=== PATIENT | female | born 1985 | race Caucasian/White ===

== ENCOUNTER 2017-06-25 06:27 | Day surgery (SDC) | payer BC ==
[2017-06-24 10:21] LABS: CHLORIDE,CL 106 mmol/L (98-110); SODIUM,NA 139 mmol/L (136-146)
[~2017-06-25 06:27] MED LIST: Sodium Chloride 0.9% 10 ML Syringe FLUSH PRN; Sodium Chloride 0.9% 2.5 ML Syringe FLUSH PRN; ceFAZolin 2 GM in Premix Bag 1 BAG IV ONE
[2017-06-25] MEDS ORDERED: Bupivacaine 0.25% 10 ML SDV ONE ×2 (07:18→08:23)
[2017-06-25] MEDS ORDERED: Fluorescein 5 ML Vial ONE (07:18)
[2017-06-25] MEDS ORDERED: Methylene Blue 50 MG/10 ML Ampule ONE (07:18)
[2017-06-25] MEDS ORDERED: Lidocaine 2% 5 ML SDV ONE (07:23)
[2017-06-25] MEDS ORDERED: Propofol 200 MG/20 ML SDV ONE ×2 (07:25→08:55)
[2017-06-25] MEDS ORDERED: Midazolam 1 MG/ML 2 ML SDV ONE (07:25)
[2017-06-25] MEDS ORDERED: fentaNYL 100 MCG/2 ML SDV ONE ×2 (07:25→09:00)
--- NOTE | 2017-06-25 07:28 | PCM.PREANE ---
Preanesthetic Assessment - Anesthesia/Transfusion/Family Hx Anesthesia History: Prior Anesthesia Without Reaction Family History of Anesthesia Reaction: No Transfusion History: No Prior Transfusion(s) - Review of Systems General: No Symptoms Pulmonary: No Symptoms Cardiovascular: No Symptoms Gastrointestinal: No Symptoms Neurological: No Symptoms Other: Reports: None - Physical Assessment NPO Status Date: 06/24/17 O2 Sat by Pulse Oximetry: 98 Respiratory Rate: 16 Vital Signs: Last Vital Signs Temp 36.5 C 06/25/17 06:36 Pulse 64 06/25/17 06:36 Resp 16 06/25/17 06:36 BP 120/84 06/25/17 06:36 Pulse Ox 98 06/25/17 06:36 Height: 1.57 m Weight: 83.915 kg ASA Class: 2 Mental Status: Alert & Oriented x3 Airway Class: Mallampati = 1 Dentition: Reports: Normal Dentition ROM/Head Extension: Full Lungs: Clear to Auscultation, Normal Respiratory Effort Cardiovascular: Regular Rate, Regular Rhythm - Lab Values: Laboratory Last Values WBC 4.76 K/uL (4.0-11.0) 06/24/17 09:43 RBC 4.44 M/uL (4.30-5.90) 06/24/17 09:43 Hgb 13.3 g/dL (12.0-16.0) 06/24/17 09:43 Hct 39.9 % (36.0-46.0) 06/24/17 09:43 MCV 89.9 fL (80.0-98.0) 06/24/17 09:43 MCH 30.0 pg (27.0-32.0) 06/24/17 09:43 MCHC 33.3 g/dL (31.0-37.0) 06/24/17 09:43 RDW Std Deviation 41.5 fl (28.0-62.0) 06/24/17 09:43 RDW Coeff of Lico 13 % (11.0-15.0) 06/24/17 09:43 Plt Count 224 K/uL (150-400) 06/24/17 09:43 MPV 10.10 fL (7.40-12.00) 06/24/17 09:43 Nucleated RBC % 0.0 /100WBC 06/24/17 09:43 Nucleated RBCs # 0 K/uL 06/24/17 09:43 Sodium 139 mmol/L (136-146) 06/24/17 09:43 Potassium 4.0 mmol/L (3.5-5.1) 06/24/17 09:43 Chloride 106 mmol/L (98-110) 06/24/17 09:43 Carbon Dioxide 25 mmol/L (21-31) 06/24/17 09:43 BUN 11 mg/dL (6.0-23.0) 06/24/17 09:43 Creatinine 0.7 mg/dL (0.6-1.5) 06/24/17 09:43 Est Cr Clr Drug Dosing 90.41 mL/min 06/24/17 09:43 Estimated GFR (MDRD) > 60.0 ml/min 06/24/17 09:43 Glucose 96 mg/dL (60-110) 06/24/17 09:43 Calcium 8.7 mg/dL (8.8-10.8) L 06/24/17 09:43 HCG, Quant < 1.2 mIU/mL 06/24/17 09:43 Blood Type A NEGATIVE 06/24/17 09:43 Antibody Screen NEGATIVE 06/24/17 09:43 - Allergies Allergies/Adverse Reactions: Allergies Allergy/AdvReac Type Severity Reaction Status Date / Time No Known Allergies Allergy Verified 03/03/15 14:09 - Anesthesia Plan Pre-Op Medication Ordered: None - Acknowledgements Anesthesia Type Planned: General Anesthesia Pt an Appropriate Candidate for the Planned Anesthesia: Yes Alternatives and Risks of Anesthesia Discussed w Pt/Guardian: Yes Pt/Guardian Understands and Agrees with Anesthesia Plan: Yes PreAnesthesia Questionnaire HEENT History: Reports: Other (See Below) Other HEENT History: wears glasses Gastrointestinal History: Reports: Other (See Below) Other Gastrointestinal History: occasional heartburn Genitourinary History: Reports: None WOOL MIXER History: Reports: Endometriosis, Psychiatric History: Reports: Anxiety Endocrine/Metabolic History: Reports: Obesity/BMI 30+ - Past Surgical History Head Surgeries/Procedures: Reports: None GI Surgical History: Reports: Appendectomy Female Surgical History: Reports: D&C, Other (See Below) Other Female Surgeries/Procedures: hysteroscopy with polypectomy and D&C, laparoscopy with peritoneal biospies and exc of left paratubal cyst - SUBSTANCE USE Smoking Status *Q: Former Smoker Tobacco Use Within Last Twelve Months: No Days Per Week of Alcohol Use: 0 Recreational Drug Use History: No - HOME MEDS Home Medications: Home Meds Estrogens, Conjugated [Premarin] 1 tab PO DAILY 06/24/17 [History] - CURRENT (IN HOUSE) MEDS Current Meds: Current Medications Sodium Chloride (Saline Flush) 10 ml FLUSH ASDIRECTED PRN PRN Reason: Keep Vein Open Sodium Chloride (Saline Flush) 2.5 ml FLUSH ASDIRECTED PRN PRN Reason: Keep Vein Open Discontinued Medications Bupivacaine HCl (Sensorcaine-Mpf 0.25%) Confirm Administered Dose 20 ml .ROUTE .STK-MED ONE Stop: 06/25/17 07:19 Fluorescein Sodium (Ak-Fluor) Confirm Administered Dose 5 ml .ROUTE .STK-MED ONE Stop: 06/25/17 07:19 Cefazolin Sodium/Dextrose 2 gm (/ Premix) 50 mls @ 100 mls/hr IV ONETIME ONE Stop: 06/25/17 05:38 Methylene Blue (Provayblue) Confirm Administered Dose 50 mg .ROUTE .STK-MED ONE Stop: 06/25/17 07:19
[2017-06-25] MEDS ORDERED: HYDROmorphone 2 MG/ML Syringe ONE (07:35)
[2017-06-25] MEDS ORDERED: HYDROmorphone 2 MG/ML Syringe IVPUSH ONE (08:26)
[2017-06-25] MEDS ORDERED: Furosemide 40 MG/4 ML VIAL ONE (09:16)
[2017-06-25] MEDS ORDERED: Acetaminophen/oxyCODONE 325-5 MG Tab PO PRN ×2 (09:45)
[2017-06-25] MEDS ORDERED: Ketorolac 30 MG/ML SDV IVPUSH ONE (09:45)
[2017-06-25] MEDS ORDERED: Aluminum Hydroxide/Magnesium Hydroxide/Simethicone Susp 30 ML Cup PO PRN (09:45)
[2017-06-25] MEDS ORDERED: Morphine 2 MG/ML Syringe IVPUSH PRN (09:45)
--- NOTE | 2017-06-25 09:58 | PCM.OPNOTE ---
- General Post-Op/Procedure Note Date of Surgery/Procedure: 06/25/17 Operative Procedure(s): LAVH/BSO/cystoscopy Findings: stage I endometriosis Pre Op Diagnosis: Endometriosis. Pelvic pain/dyspareunia Post-Op Diagnosis: Same Anesthesia Technique: General ET Tube Primary Surgeon: Deepa Seymour Secondary Surgeon: Jesusita Hendrix Computer Art Instructor: Elly torres Pathology: Uterus/tubes/ovaries Fluid Replacement, Intraop: 2,300 EBL in mLs: 300 Complications: None known Condition: Good Free Text/Narrative:: Dictation [id number]
[2017-06-25] MEDS: fentaNYL 100 MCG/2 ML SDV IVPUSH PRN ×2 (10:34→10:41)
[2017-06-25] MEDS: Lactated Ringers 1,000 ML IV SCH ×2 (11:00→20:25)
[2017-06-25] MEDS: Ondansetron 4 MG/2 ML SDV IVPUSH PRN ×2 (11:29→17:33)
--- NOTE | 2017-06-25 11:31 | PCM.POSTAN ---
POST ANESTHESIA ASSESSMENT - MENTAL STATUS Mental Status: Alert, Oriented - RESPIRATORY Respiratory Status: Respiratory Rate WNL, Airway Patent, O2 Saturation Stable - CARDIOVASCULAR CV Status: Pulse Rate WNL, Blood Pressure Stable - GASTROINTESTINAL GI Status: No Symptoms - POST OP HYDRATION Hydration Status: Adequate & Stable
[2017-06-25] MEDS: Promethazine 25 MG/ML SDV IM PRN ×2 (13:28→20:17)
[2017-06-25] MEDS: Ketorolac 30 MG/ML SDV IVPUSH PRN (15:27)
--- NOTE | 2017-06-25 17:19 | OR ---
SURGEON: Deepa Seymour M.D. DATE OF PROCEDURE: 06/25/2017 PREOPERATIVE DIAGNOSES: 1. Endometriosis. 2. Pelvic pain with dyspareunia. POSTOPERATIVE DIAGNOSES: 1. Endometriosis. 2. Pelvic pain with dyspareunia. PROCEDURE: Laparoscopic-assisted bilateral vaginal hysterectomy with bilateral salpingo- oophorectomy, and cystoscopy. DRYING RACK CHANGER: Ericka Kennedy MD ANESTHESIA: General endotracheal anesthesia. ESTIMATED BLOOD LOSS: 300 mL. FLUIDS: 2300 mL crystalloid. COMPLICATIONS: None. FINDINGS: Mobile uterus. Normal-appearing tubes and ovaries. Stage 1 endometriosis. Normal appearing bladder with bilateral patent ureters visualized. DISPOSITION: The patient is to PACU, stable. INDICATIONS: Deidre is a 31-year-old female who has ongoing difficulties with pelvic pain and dyspareunia secondary to laparoscopic diagnosed endometriosis. She responded very well to Lupron and denied any significant menopausal symptoms while on the back therapy. Therefore, after long discussion with her and myself she would like to proceed with definitive surgical intervention. Risks of the procedure have been discussed. Proper consent obtained. She would like to have her ovaries removed at the time of the procedure. DESCRIPTION OF PROCEDURE: The patient was taken to the operating room, where she underwent general endotracheal anesthesia, placed in modified supine position, prepped and draped in usual sterile fashion. SCDs to lower extremities. Ravi to gravity. Received Ancef prophylactically. Time-out was performed. A speculum was introduced in the vagina. Cervix was grasped with an Allis clamp and a Salud uterine manipulator was gently placed. The balloon was insufflated. The Allis clamp and the speculum were removed. Gloves were changed. Attention turned abdominally. Infraumbilically, 0.25% Marcaine was introduced. A 5 mm skin incision was created, anterior abdominal wall tented upward, and Veress needle was introduced. Saline hanging drop test was performed. Pneumoperitoneum was achieved. The needle was removed followed by placement of 5 mm trocar and laparoscope. The peritoneal contents were identified. Uterus was mobile. Tubes and ovaries appeared normal. Overall, the ureters were seen peristalsing well away from operative field. Right lower quadrant trocars were now placed after visualizing the epigastric vessels on either side. Regions were prepped with 0.25% Marcaine and 5 mm skin incisions were made. After 5 mm trocars were placed on either side, the left cornua of the uterus were grasped with a clamp and infundibulopelvic ligament was secured with ligature, cauterized and transected. Further pedicle toward the cornea was able to be secured, cauterized, and transected. Attention was now turned to the securing the remaining pedicles including the upper broad ligament including the round ligament, the lower portion of the broad ligament, upper base of the cardinal ligament, and remainder of the cardinal ligament. Anteriorly, a bladder flap was created and sharply dissected with the ligature. Posteriorly, remainder of the cardinal ligament was able be secured, cauterized, and transected. In a similar fashion, this was performed on the patient's right side where the adnexa were grasped with grasper. The right infundibulum pelvic ligament was able to be secured with LigaSure and cauterized and transected followed by the upper broad ligament, round ligament, base of the broad ligament, the cardinal ligament, and the remainder of the bladder flap was created along the side. Remainder of the cardinal ligaments, along the posterior aspect of this was now able to be cauterized and transected as well. The bladder was now mobilized away from lower uterine segment and cervix with hydrodissection and attention was now turned vaginally. Pneumoperitoneum was released. All laparoscopic instruments were removed. We repositioned vaginally and the knees and the hips were flexed. A weighted speculum anterior [place] was introduced in the vagina. Cervix grasped with Marlon clamp. The cervix was cauterized with Bovie cautery anteriorly and posteriorly. The mucosa was dissected away from underlying perineum. Posteriorly, perineum was tented downward and entered sharply. Longer weighted speculum was replaced with the shorter. Anteriorly, the peritoneum was tented upward and entered sharply. The [place] mobilized the bladder away from the lower uterine segment. Uterosacral ligament on either side was secured with a Salud clamp, transected, and suture ligated with 2-0 Vicryl. The remaining pedicle on either side was able to be secured, transected, and suture ligated. The uterus, tubes, and ovaries were now removed and handed to scrub to be sent to pathology. The pedicles were closely inspected. The uterosacral ligaments on either side were plicated to the vaginal apex. Posteriorly, the cuff is wanting to ooze, therefore, a culdoplasty was performed using the 2-0 Vicryl starting at the left uterosacral ligament, pedicle reefing the posterior peritoneum and incorporating the right uterosacral ligament. This was tied down to help secure hemostasis along the posterior cuff line. Remainder of pedicles appeared hemostatic. The cuff was now closed using 0 Vicryl in continuous running locked fashion. The cuff was inspected found to be hemostatic. The balloon on the Ravi was desufflated. Methylene blue had been drained from the back fill the bladder. The IV fluorescein and Lasix was introduced via IV. The Ravi catheter was removed. Cystoscope was introduced using normal saline as distention media. I was able to visualize the dome of the bladder followed by the trigone. The left ureteral orifice was found to be peristalsing with fluorescein dyed urine streaming from it, followed by the right ureteral orifice with fluorescein dyed urine seen streaming from it. The cystoscope was now removed. Ravi catheter was placed. Vaginal cuff once again inspected and found to be hemostatic. All vaginal instruments were removed. Gloves were changed. Attention turned abdominally. Pneumoperitoneum was once again achieved. The laparoscoped was introduced. The bowel was mobilized away from the pelvis. The pedicles were inspected, well irrigated with sterile water, and found to be hemostatic. Release pressure was decreased down to 5 mm. Hemostasis remains evident. Once, I irrigated the pelvis, suction, dried. Hemostasis appeared evident; therefore, laparoscopic instruments were removed. Pneumoperitoneum was released. Trocars removed under direct visualization. Once the pneumoperitoneum was felt to be satisfactorily elevated, the skin edges were reapproximated using 3-0 Monocryl in subcuticular fashion. Sponge, instrument, needle count was correct x2. The patient has tolerated this procedure well overall. She will go to PACU in stable condition. Specimens pathology. LION / MASOOD /[id number] MTDAntonella
[2017-06-25] MEDS: Morphine 4 MG/ML Syringe IVPUSH PRN ×3 (17:34→23:56)
[2017-06-25] MEDS: Docusate Sodium 100 MG Cap PO SCH (20:05)
--- NOTE | 2017-06-25 21:12 | PCM48HPAN ---
Post Anesthesia Note - EVALUATION WITHIN 48HRS OF ANESTHETIC Vital Signs in Normal Range: Yes Patient Participated in Evaluation: Yes Respiratory Function Stable: Yes Airway Patent: Yes Cardiovascular Function Stable: Yes Hydration Status Stable: Yes Pain Control Satisfactory: Yes Nausea and Vomiting Control Satisfactory: Yes Mental Status Recovered: Yes
[2017-06-26] MEDS: Morphine 4 MG/ML Syringe IVPUSH PRN (04:05)
[2017-06-26] MEDS: Lactated Ringers 1,000 ML IV SCH (04:10)
[2017-06-26 05:33] LABS: CHLORIDE,CL 104 mmol/L (98-110); SODIUM,NA 137 mmol/L (136-146)
[2017-06-26 07:37] VITALS: BP 125/74
--- NOTE | 2017-06-26 08:40 | PCM.SURGPN ---
- General Info Date of Service: 06/26/17 POD#: 1 Functional Status: Reports: Pain Controlled, Tolerating Diet, Ambulating, Urinating - Review of Systems General: Reports: Fatigue. Denies: Fever, Weakness Pulmonary: Denies: Shortness of Breath Cardiovascular: Denies: Chest Pain, Palpitations, Lightheadedness Gastrointestinal: Denies: Abdominal Pain, Nausea (hasn't had any since tsai removed last night), Vomiting Genitourinary: Denies: Flank Pain Skin: Reports: No Symptoms Psychiatric: Reports: No Symptoms - Patient Data Vitals - Most Recent: Last Vital Signs Temp 36.9 C 06/26/17 07:35 Pulse 98 06/26/17 07:35 Resp 16 06/26/17 07:35 BP 125/74 06/26/17 07:35 Pulse Ox 95 06/26/17 07:35 Weight - Most Recent: 83.915 kg I&O - Last 24 Hours: Intake & Output 06/25/17 06/26/17 06/26/17 22:59 06:59 14:59 Intake Total 100 2300 Output Total 675 2050 Balance -575 250 Lab Results Last 24 Hrs: Laboratory Results - last 24 hr 06/26/17 06/26/17 Range/Units 05:03 05:03 WBC 10.33 (4.0-11.0) K/uL RBC 3.66 L (4.30-5.90) M/uL Hgb 11.0 L (12.0-16.0) g/dL Hct 32.8 L (36.0-46.0) % MCV 89.6 (80.0-98.0) fL MCH 30.1 (27.0-32.0) pg MCHC 33.5 (31.0-37.0) g/dL RDW Std Deviation 41.5 (28.0-62.0) fl RDW Coeff of Lico 13 (11.0-15.0) % Plt Count 215 (150-400) K/uL MPV 9.90 (7.40-12.00) fL Neut % (Auto) 74.1 (48.0-80.0) % Lymph % (Auto) 17.8 (16.0-40.0) % Clarke % (Auto) 8.1 (0.0-15.0) % Eos % (Auto) 0.0 (0.0-7.0) % Baso % (Auto) 0.0 (0.0-1.5) % Neut # (Auto) 7.7 H (1.4-5.7) K/uL Lymph # (Auto) 1.8 (0.6-2.4) K/uL Clarke # (Auto) 0.8 (0.0-0.8) K/uL Eos # (Auto) 0.0 (0.0-0.7) K/uL Baso # (Auto) 0.0 (0.0-0.1) K/uL Nucleated RBC % 0.0 /100WBC Nucleated RBCs # 0 K/uL Sodium 137 (136-146) mmol/L Potassium 3.8 (3.5-5.1) mmol/L Chloride 104 (98-110) mmol/L Carbon Dioxide 26 (21-31) mmol/L BUN 5 L (6.0-23.0) mg/dL Creatinine 0.6 (0.6-1.5) mg/dL Est Cr Clr Drug Dosing 105.48 mL/min Estimated GFR (MDRD) > 60.0 ml/min Glucose 115 H (60-110) mg/dL Calcium 7.9 L (8.8-10.8) mg/dL Med Orders - Current: Current Medications Al Hydroxide/Mg Hydroxide (Mag-Al Plus) 30 ml PO Q4H PRN PRN Reason: Indigestion Docusate Sodium (Colace) 100 mg PO BID [facility] Last Admin: 06/25/17 20:05 Dose: 100 mg Estradiol (Climara) 0.1 mg TRDERM Q7D [facility] Last Admin: 06/25/17 15:46 Dose: 0.1 mg Lactated Ringer's (Ringers, Lactated) 1,000 mls @ 125 mls/hr IV ASDIRECTED [facility] Last Admin: 06/26/17 04:10 Dose: 125 mls/hr Ketorolac Tromethamine (Toradol) 30 mg IVPUSH Q6H PRN PRN Reason: Pain (severe 7-10) Stop: 06/30/17 09:45 Last Admin: 06/25/17 15:27 Dose: 30 mg Morphine Sulfate (Morphine) 2 mg IVPUSH Q2H PRN PRN Reason: Pain (severe 7-10) Last Admin: 06/25/17 13:31 Dose: 2 mg Morphine Sulfate (Morphine) 4 mg IVPUSH Q2H PRN PRN Reason: Pain (severe 7-10) Last Admin: 06/26/17 04:05 Dose: 4 mg Ondansetron HCl (Zofran) 4 mg IVPUSH Q6H PRN PRN Reason: Nausea/Vomiting Last Admin: 06/25/17 17:33 Dose: 4 mg Oxycodone/Acetaminophen (Percocet 325-5 Mg) 1 tab PO Q4H PRN PRN Reason: Pain (moderate 4-6) Oxycodone/Acetaminophen (Percocet 325-5 Mg) 2 tab PO Q4H PRN PRN Reason: Pain (moderate 4-6) Last Admin: 06/25/17 11:22 Dose: 2 tab Promethazine HCl (Phenergan) 25 mg IM Q6H PRN PRN Reason: Nausea/Vomiting Last Admin: 06/25/17 20:17 Dose: 25 mg Sodium Chloride (Saline Flush) 10 ml FLUSH ASDIRECTED PRN PRN Reason: Keep Vein Open Sodium Chloride (Saline Flush) 2.5 ml FLUSH ASDIRECTED PRN PRN Reason: Keep Vein Open Discontinued Medications Bupivacaine HCl (Sensorcaine-Mpf 0.25%) Confirm Administered Dose 20 ml .ROUTE .STK-MED ONE Stop: 06/25/17 07:19 Bupivacaine HCl (Sensorcaine-Mpf 0.25%) Confirm Administered Dose 10 ml .ROUTE .STK-MED ONE Stop: 06/25/17 08:24 Fentanyl (Sublimaze) Confirm Administered Dose 300 mcg .ROUTE .STK-MED ONE Stop: 06/25/17 07:26 Fentanyl (Sublimaze) 50 mcg IVPUSH Q5M PRN PRN Reason: Pain (severe 7-10) Stop: 06/26/17 08:26 Last Admin: 06/25/17 10:41 Dose: 50 mcg Fentanyl (Sublimaze) Confirm Administered Dose 100 mcg .ROUTE .STK-MED ONE Stop: 06/25/17 09:01 Fluorescein Sodium (Ak-Fluor) Confirm Administered Dose 5 ml .ROUTE .STK-MED ONE Stop: 06/25/17 07:19 Furosemide (Lasix) Confirm Administered Dose 40 mg .ROUTE .STK-MED ONE Stop: 06/25/17 09:17 Hydromorphone HCl (Dilaudid) Confirm Administered Dose 2 mg .ROUTE .STK-MED ONE Stop: 06/25/17 07:36 Hydromorphone HCl (Dilaudid) 0 mg IVPUSH ONETIME ONE Stop: 06/25/17 08:27 Last Admin: 06/25/17 15:12 Dose: Not Given Cefazolin Sodium/Dextrose 2 gm (/ Premix) 50 mls @ 100 mls/hr IV ONETIME ONE Stop: 06/25/17 05:38 Last Admin: 06/25/17 15:11 Dose: Not Given Ketorolac Tromethamine (Toradol) 30 mg IVPUSH ONETIME ONE Stop: 06/25/17 09:46 Last Admin: 06/25/17 15:12 Dose: Not Given Lidocaine (Xylocaine-Mpf 2%) Confirm Administered Dose 10 ml .ROUTE .STK-MED ONE Stop: 06/25/17 07:24 Methylene Blue (Provayblue) Confirm Administered Dose 50 mg .ROUTE .STK-MED ONE Stop: 06/25/17 07:19 Midazolam HCl (Versed 1 Mg/Ml) Confirm Administered Dose 2 mg .ROUTE .STK-MED ONE Stop: 06/25/17 07:26 Propofol (Diprivan 20 Ml) Confirm Administered Dose 400 mg .ROUTE .STK-MED ONE Stop: 06/25/17 07:26 Propofol (Diprivan 20 Ml) Confirm Administered Dose 200 mg .ROUTE .STK-MED ONE Stop: 06/25/17 08:56 - Exam Wound/Incisions: Dressing Dry and Intact, No Drainage. No: Erythema General: Alert, Oriented Lungs: Normal Respiratory Effort Cardiovascular: Regular Rate, Regular Rhythm GI/Abdominal Exam: Normal Bowel Sounds, Soft, Tender (along incisions). No: Guarding, Rebound Extremities: No Pedal Edema Skin: Warm, Dry, Intact Psy/Mental Status: Alert, Normal Affect - Problem List & Annotations (1) Endometriosis determined by laparoscopy SNOMED Code(s): 305716661 Code(s): N80.9 - ENDOMETRIOSIS, UNSPECIFIED Status: Acute Current Visit: Yes - Problem List Review Problem List Initiated/Reviewed/Updated: Yes - My Orders Last 24 Hours: Active Orders 24 hr Category Date Time Status Patient Status [ADT] Routine ADT 06/25/17 09:45 Active Antiembolic Devices [RC] PER UNIT ROUTINE Care 06/25/17 09:46 Active May Shower [RC] ASDIRECTED Care 06/25/17 09:45 Active Notify Provider Intake and Out [RC] ASDIRECTED Care 06/25/17 09:45 Active Notify Provider Vital Signs [RC] ASDIRECTED Care 06/25/17 09:45 Active Oxygen Therapy [RC] ASDIRECTED Care 06/25/17 09:45 Active RT Incentive Spirometry [RC] Q2HWA Care 06/25/17 09:45 Active Ready for Discharge [RC] PER UNIT ROUTINE Care 06/26/17 08:37 Ordered Up With Assistance [RC] PER UNIT ROUTINE Care 06/25/17 09:45 Active Up ad Marilyn [RC] PER UNIT ROUTINE Care 06/25/17 09:45 Active Urinary Catheter Removal [RC] Per Unit Routine Care 06/25/17 09:45 Active Vital Signs [RC] PER UNIT ROUTINE Care 06/25/17 09:45 Active Regular Diet [DIET] Diet 06/25/17 Lunch Active Acetaminophen/oxyCODONE [Percocet 325-5 MG] Med 06/25/17 09:45 Active 1 tab PO Q4H PRN Acetaminophen/oxyCODONE [Percocet 325-5 MG] Med 06/25/17 09:45 Active 2 tab PO Q4H PRN Alum Hydrox/Mag Hydrox/Simeth [Mag-Al Plus] Med 06/25/17 09:45 Active 30 ml PO Q4H PRN Docusate Sodium [Colace] Med 06/25/17 21:00 Active 100 mg PO BID Estradiol [Climara] Med 06/25/17 09:45 Active 0.1 mg TRDERM Q7D Ketorolac [Toradol] Med 06/25/17 09:45 Active 30 mg IVPUSH Q6H PRN Lactated Ringers [Ringers, Lactated] 1,000 ml Med 06/25/17 16:30 Active IV ASDIRECTED Morphine Med 06/25/17 09:45 Active 2 mg IVPUSH Q2H PRN Morphine Med 06/25/17 09:45 Active 4 mg IVPUSH Q2H PRN Ondansetron [Zofran] Med 06/25/17 09:45 Active 4 mg IVPUSH Q6H PRN Promethazine [Phenergan] Med 06/25/17 09:45 Active 25 mg IM Q6H PRN Peripheral IV Discontinue [OM.PC] Routine Oth 06/25/17 09:45 Ordered Sequential Compression Device [OM.PC] Per Unit Routine Oth 06/25/17 09:45 Ordered Resuscitation Status Routine Resus Stat 06/25/17 09:45 Ordered Medication Orders Al Hydroxide/Mg Hydroxide (Mag-Al Plus) 30 ml PO Q4H PRN PRN Reason: Indigestion Docusate Sodium (Colace) 100 mg PO BID [facility] Last Admin: 06/25/17 20:05 Dose: 100 mg Estradiol (Climara) 0.1 mg TRDERM Q7D [facility] Last Admin: 06/25/17 15:46 Dose: 0.1 mg Lactated Ringer's (Ringers, Lactated) 1,000 mls @ 125 mls/hr IV ASDIRECTED [facility] Last Admin: 06/26/17 04:10 Dose: 125 mls/hr Infusion: 06/26/17 04:10 Dose: 125 mls/hr Admin: 06/25/17 20:25 Dose: 125 mls/hr Infusion: 06/25/17 19:00 Dose: 125 mls/hr Admin: 06/25/17 11:00 Dose: 125 mls/hr Ketorolac Tromethamine (Toradol) 30 mg IVPUSH Q6H PRN PRN Reason: Pain (severe 7-10) Stop: 06/30/17 09:45 Last Admin: 06/25/17 15:27 Dose: 30 mg Morphine Sulfate (Morphine) 2 mg IVPUSH Q2H PRN PRN Reason: Pain (severe 7-10) Last Admin: 06/25/17 13:31 Dose: 2 mg Morphine Sulfate (Morphine) 4 mg IVPUSH Q2H PRN PRN Reason: Pain (severe 7-10) Last Admin: 06/26/17 04:05 Dose: 4 mg Admin: 06/25/17 23:56 Dose: 4 mg Admin: 06/25/17 20:18 Dose: 4 mg Admin: 06/25/17 17:34 Dose: 4 mg Ondansetron HCl (Zofran) 4 mg IVPUSH Q6H PRN PRN Reason: Nausea/Vomiting Last Admin: 06/25/17 17:33 Dose: 4 mg Admin: 06/25/17 11:29 Dose: 4 mg Oxycodone/Acetaminophen (Percocet 325-5 Mg) 1 tab PO Q4H PRN PRN Reason: Pain (moderate 4-6) Oxycodone/Acetaminophen (Percocet 325-5 Mg) 2 tab PO Q4H PRN PRN Reason: Pain (moderate 4-6) Last Admin: 06/25/17 11:22 Dose: 2 tab Promethazine HCl (Phenergan) 25 mg IM Q6H PRN PRN Reason: Nausea/Vomiting Last Admin: 06/25/17 20:17 Dose: 25 mg Admin: 06/25/17 13:28 Dose: 25 mg Sodium Chloride (Saline Flush) 10 ml FLUSH ASDIRECTED PRN PRN Reason: Keep Vein Open Sodium Chloride (Saline Flush) 2.5 ml FLUSH ASDIRECTED PRN PRN Reason: Keep Vein Open - Assessment Assessment (Free Text/Narrative):: POD 1 status post LAVH/BSO/cystoscopy - Plan Plan (Free Text/Narrative):: Patient is doing well--she is tolerating oral pain meds, voiding and is ambulating halls. Ready to go home. Discharge instructions reviewed. Infection and bleeding warnings reviewed. Follow up at [facility] 2 and 6 weeks. Rx for percocet and estrogen sent into pharmacy.
[2017-06-26] MEDS: Ketorolac 30 MG/ML SDV IVPUSH PRN (08:58)
[2017-06-26] MEDS: Docusate Sodium 100 MG Cap PO SCH (08:59)
== END 2017-06-26 11:18 | disposition home or self-care (01) ==
LOC: MW.SDS 06:27 → MW.MS 10:44 → MW.SDS 06-26 11:18
PROVIDERS: ATTEND Obstetrics & Gynecology
DX: N85.01 Benign endometrial hyperplasia (principal); N80.0 Endometriosis of uterus; E66.9 Obesity, unspecified; F41.9 Anxiety disorder, unspecified; Z79.899 Other long term (current) drug therapy; Z90.49 Acquired absence of other specified parts of digestive tract; Z98.890 Other specified postprocedural states; Z87.891 Personal history of nicotine dependence; Z68.30 Body mass index [BMI] 30.0-30.9, adult
CPT/HCPCS: 36415; 58552; 80048; 84702; 85025; 85027; 86850; 86900; 86901; 88307; A9270; J1170; J1885; J1940; J2250; J2270; J2405; J2550; J3010; J7120; 00944; J2704

== ENCOUNTER 2017-12-18 06:26 | Day surgery (SDC) | payer BC ==
[~2017-12-18 06:26] MED LIST changes: +Lactated Ringers 1,000 ML IV SCH; -Sodium Chloride 0.9% 10 ML Syringe FLUSH PRN; -Sodium Chloride 0.9% 2.5 ML Syringe FLUSH PRN; -ceFAZolin 2 GM in Premix Bag 1 BAG IV ONE
[2017-12-18] MEDS ORDERED: Propofol 200 MG/20 ML SDV ONE (07:00)
[2017-12-18] MEDS ORDERED: Midazolam 1 MG/ML 2 ML SDV ONE (07:00)
[2017-12-18] MEDS ORDERED: Ketorolac 30 MG/ML SDV ONE (07:01)
[2017-12-18] MEDS ORDERED: Ondansetron 4 MG/2 ML SDV ONE (07:01)
[2017-12-18] MEDS ORDERED: fentaNYL 250 MCG/5 ML SDV ONE (07:01)
[2017-12-18] MEDS ORDERED: Succinylcholine/Normal Saline 200 MG/10 ML Syringe ONE (07:01)
--- NOTE | 2017-12-18 07:21 | PCM.PREANE ---
Preanesthetic Assessment - Anesthesia/Transfusion/Family Hx Anesthesia History: Prior Anesthesia Without Reaction Family History of Anesthesia Reaction: No Transfusion History: No Prior Transfusion(s) Intubation History: History of Difficulty Intubation - Review of Systems General: No Symptoms Pulmonary: No Symptoms Cardiovascular: No Symptoms Gastrointestinal: No Symptoms Neurological: No Symptoms Other: Reports: None - Physical Assessment NPO Status Date: 12/17/17 NPO Status Time: 23:00 O2 Sat by Pulse Oximetry: 97 Respiratory Rate: 16 Vital Signs: Last Vital Signs Temp 36.7 C 12/18/17 07:02 Pulse 76 12/18/17 07:02 Resp 16 12/18/17 07:02 BP 118/79 12/18/17 07:02 Pulse Ox 97 12/18/17 07:02 Height: 1.52 m Weight: 84.368 kg ASA Class: 1 Mental Status: Alert & Oriented x3 Airway Class: Mallampati = 1 Dentition: Reports: Normal Dentition ROM/Head Extension: Full Lungs: Clear to Auscultation, Normal Respiratory Effort Cardiovascular: Regular Rate, Regular Rhythm - Allergies Allergies/Adverse Reactions: Allergies Allergy/AdvReac Type Severity Reaction Status Date / Time No Known Allergies Allergy Verified 12/12/17 13:09 - Anesthesia Plan Pre-Op Medication Ordered: None - Acknowledgements Anesthesia Type Planned: General Anesthesia Pt an Appropriate Candidate for the Planned Anesthesia: Yes Alternatives and Risks of Anesthesia Discussed w Pt/Guardian: Yes Pt/Guardian Understands and Agrees with Anesthesia Plan: Yes Additional Comments: pt to decide if she wants ISB for post op pain management. 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, Musculoskeletal History: Reports: Other (See Below) Other Musculoskeletal History: left shoulder pain Psychiatric History: Reports: Anxiety Endocrine/Metabolic History: Reports: Obesity/BMI 30+ - Past Surgical History Head Surgeries/Procedures: Reports: None GI Surgical History: Reports: Appendectomy Female Surgical History: Reports: D&C, Hysterectomy, Salpingo-Oophorectomy, Other (See Below) Other Female Surgeries/Procedures: hysteroscopy with polypectomy and D&C, laparoscopy with peritoneal biospies and exc of left paratubal cyst - SUBSTANCE USE Smoking Status *Q: Former Smoker Tobacco Use Within Last Twelve Months: No Days Per Week of Alcohol Use: 0 Recreational Drug Use History: No - HOME MEDS Home Medications: Home Meds Estradiol [Vivelle-Dot] 1 patch TRDERM ASDIRECTED 12/12/17 [History] - CURRENT (IN HOUSE) MEDS Current Meds: Current Medications Hydrocodone Bitart/Acetaminophen ([place] 325-10 Mg) 1 - 2 tab PO Q4H PRN PRN Reason: Pain Cefazolin Sodium/Dextrose 2 gm (/ Premix) 50 mls @ 100 mls/hr IV ONCALL [facility] Lactated Ringer's (Ringers, Lactated) 1,000 mls @ 100 mls/hr IV ASDIRECTED [facility] Last Admin: 12/18/17 07:02 Dose: 100 mls/hr Ketorolac Tromethamine (Toradol) 10 mg PO Q6H PRN PRN Reason: Pain Stop: 12/23/17 08:01 Discontinued Medications Fentanyl (Sublimaze) Confirm Administered Dose 250 mcg .ROUTE .STK-MED ONE Stop: 12/18/17 07:02 Ketorolac Tromethamine (Toradol) Confirm Administered Dose 30 mg .ROUTE .STK- MED ONE Stop: 12/18/17 07:02 Midazolam HCl (Versed 1 Mg/Ml) Confirm Administered Dose 2 mg .ROUTE .STK-MED ONE Stop: 12/18/17 07:01 Ondansetron HCl (Zofran) Confirm Administered Dose 4 mg .ROUTE .STK-MED ONE Stop: 12/18/17 07:02 Propofol (Diprivan 20 Ml) Confirm Administered Dose 400 mg .ROUTE .STK-MED ONE Stop: 12/18/17 07:01 Succinylcholine Chloride (Succinylcholine In Ns Pf) Confirm Administered Dose 200 mg .ROUTE .STK-MED ONE Stop: 12/18/17 07:02
[2017-12-18] MEDS ORDERED: Lidocaine 2% 5 ML SDV ONE (07:47)
[2017-12-18] MEDS ORDERED: Dexamethasone 4 MG/ML 5 ML MDV ONE (07:47)
[2017-12-18] MEDS ORDERED: Bupivacaine 0.5% 30 ML SDV ONE (07:48)
[2017-12-18] MEDS ORDERED: Ketorolac 10 MG Tab PO PRN ×2 (08:00→10:02)
[2017-12-18] MEDS ORDERED: ceFAZolin 2 GM in Premix Bag 1 BAG IV SCH (08:00)
[2017-12-18] MEDS ORDERED: Acetaminophen/HYDROcodone 325-10 MG Tab PO PRN (08:00)
--- NOTE | 2017-12-18 08:38 | PCM.SN ---
- Free Text/Narrative Note: procedure note -- L ISB for post op pain management. consent obtained, time out performed. site located and marked. local infiltration with 2% lido. + twitch estinguished at .24, No paresthesia or blood. Dosed with 28 ml of 0.5% bupivicaine and 8 mg of dexamethasone in 5 ml increments. No complications.
[2017-12-18] MEDS ORDERED: Acetaminophen/oxyCODONE 325-10 MG Tab PO PRN (09:56)
--- NOTE | 2017-12-18 10:02 | PCM.OPNOTE ---
- General Post-Op/Procedure Note Date of Surgery/Procedure: 12/18/17 Operative Procedure(s): L shoulder arthroscopy with SAD Post-Op Diagnosis: L shoulder impingement Anesthesia Technique: General ET Tube, Regional Block Primary Surgeon: Inessa Beck Cycle Consultant: Yessenia Baker in mLs: 10 Condition: Good Free Text/Narrative:: #[id number]
[2017-12-18] MEDS ORDERED: fentaNYL 100 MCG/2 ML SDV IVPUSH PRN (10:16)
--- NOTE | 2017-12-18 10:44 | PCM.POSTAN ---
POST ANESTHESIA ASSESSMENT - MENTAL STATUS Mental Status: Alert, Oriented - RESPIRATORY Respiratory Status: Respiratory Rate WNL, Airway Patent, O2 Saturation Stable - CARDIOVASCULAR CV Status: Pulse Rate WNL, Blood Pressure Stable - GASTROINTESTINAL GI Status: No Symptoms - PAIN Pain Score: 0 (Interscalene Block working well) - POST OP HYDRATION Hydration Status: Adequate & Stable - OBSERVATIONS Free Text/Narrative:: Pt stable for phase II recovery with no apparent anesthesia complications.
[2017-12-18 13:56] VITALS: BP 107/64
--- NOTE | 2017-12-18 17:29 | OR ---
SURGEON: Inessa Beck MD DATE OF PROCEDURE: 12/18/2017 PREOPERATIVE DIAGNOSIS: Left shoulder impingement syndrome. POSTOPERATIVE DIAGNOSIS: Left shoulder impingement syndrome. PROCEDURE: Left shoulder arthroscopy with subacromial decompression with release of coracoacromial ligament and acromioplasty. PRIMARY SURGEON: Inessa Beck MD MACHINE BILLER: Yessenia Baker PA-C. ANESTHESIA: General with interscalene block. ESTIMATED BLOOD LOSS: 10 mL. TOURNIQUET TIME: 0 minutes. COMPLICATIONS: None. DVT PROPHYLAXIS: PAS boots to bilateral lower extremities. IMPLANTS USED: None. BRIEF HISTORY: Deidre is a 32-year-old female, who has had complaint of progressive left shoulder pain. She had failed conservative treatment. Due to her lack of response to conservative treatment, I did recommend surgical intervention. The risks and goals of procedure were discussed with the patient and were documented preoperatively. She agreed to proceed. DESCRIPTION OF PROCEDURE: The patient was properly identified and brought to the operating room. She was transferred from the OR cart and placed on the operating table in supine position. General anesthesia was administered. An interscalene block had been administered preoperatively. After adequate anesthesia was obtained, the patient was placed into a beach-chair position. Care was taken to pad all bony prominences. Her head was secured. The left upper extremity was then prepped in standard fashion using ChloraPrep solution. It was then sterilely draped. A time-out was performed to ensure correct site and procedure. Preoperative antibiotics were given. The surgical site had been marked preoperatively. Bony landmarks were identified with a marking pen. Approximately 30 mL of normal saline was introduced into the glenohumeral joint. A posterior portal was established. Blunt trocar and cannula were introduced into the glenohumeral joint. Camera, inflow, and outflow were assembled. The biceps tendon was visualized. This was thoroughly inspected. Its attachment to the superior labrum was intact and there was no evidence of tearing. The biceps was pulled intra-articularly and I did not appreciate any longitudinal splitting or synovitis. I elected to keep the biceps intact. The rotator interval showed mild synovitis. The subscapularis was visualized and probed. It was found to be intact. No loose bodies were identified in the subscapular recess. The anterior and posterior labrum were then inspected. This was found to be intact and there was no evidence of tearing. Both the glenoid and humeral head showed no sign of degenerative changes. I then entered the axillary pouch. No loose bodies were identified. The arm was then brought into an abducted and externally rotated position. The bare area was noted posteriorly. As I progressed forward, there was good attachment of the cuff tissue throughout the duration. There was no evidence of articular sided tearing. The arm was then brought back into a neutral position. The blunt trocar and cannula were introduced into the subacromial space. Camera, inflow, and outflow were again assembled. A lateral portal was established. A shaver was placed and extensive bursectomy was performed to allow visualization. Electrocautery was also used to maintain hemostasis. The coracoacromial ligament was released anteriorly. A large spur along the anterior aspect of the acromion was noted, which appeared to be causing impingement. A 5.0 mm belia was then used to perform the acromioplasty. This provided good decompression of the subacromial space. The remainder of the cuff tissue was inspected. This was found to be intact and there was no sign of bursal sided tearing. The instruments were then removed from the shoulder. The portal sites were closed with 3-0 nylon. Xeroform gauze was placed over the wound and a bulky dressing was applied. She was awakened from her anesthetic and transferred back to the operating room cart. She was brought to recovery room in stable condition. All needle and sponge counts were correct. PANCHO / MASOOD /[id number]
== END 2017-12-18 12:15 | disposition home or self-care (01) ==
LOC: MW.SDS 06:26
PROVIDERS: ATTEND Orthopaedic Surgery
DX: M75.42 Impingement syndrome of left shoulder (principal); Z79.818 Long term (current) use of other agents affecting estrogen receptors and estrogen levels
CPT/HCPCS: 29822; J1100; J1885; J2250; J2405; J3010; J7120; 01622; 88304; J2704

== ENCOUNTER 2019-03-07 21:11 | Emergency (ER) | payer BC ==
[2019-03-07 21:31] VITALS: BP 138/85
--- NOTE | 2019-03-07 21:44 | EDM.PDOC ---
ED HPI GENERAL MEDICAL PROBLEM - General Chief Complaint: ENT Problem Stated Complaint: PT HAS EAR INFECTION Time Seen by Provider: 03/07/19 21:37 - History of Present Illness INITIAL COMMENTS - FREE TEXT/NARRATIVE: HISTORY AND PHYSICAL: History of present illness: Patient is 33-year-old white female presents with concern of right ear pain 2 days she denies fever chills nausea vomiting or other complaints Review of systems: As per history of present illness and below otherwise all systems reviewed and negative. Past medical history: As per history of present illness and as reviewed below otherwise noncontributory. Surgical history: As per history of present illness and as reviewed below otherwise noncontributory. Social history: No reported history of drug or alcohol abuse. Family history: As per history of present illness and as reviewed below otherwise noncontributory. Physical exam: HEENT: Atraumatic, normocephalic, pupils reactive, negative for conjunctival pallor or scleral icterus, mucous membranes moist, throat clear, neck supple, nontender, trachea midline. Right TM injected with absent light reflex Lungs: Clear to auscultation, breath sounds equal bilaterally, chest nontender. Heart: S1S2, regular, negative for clicks, rubs, or JVD. Abdomen: Soft, nondistended, nontender. Negative for masses or hepatosplenomegaly. Negative for costovertebral tenderness. Pelvis: Stable nontender. Genitourinary: Deferred. Rectal: Deferred. Extremities: Atraumatic, negative for cords or calf pain. Neurovascular unremarkable. Neuro: Awake, alert, oriented. Cranial nerves II through XII unremarkable. Cerebellum unremarkable. Motor and sensory unremarkable throughout. Exam nonfocal. Diagnostics: None Therapeutics: None Impression: #1 right otitis media Definitive disposition and diagnosis as appropriate pending reevaluation and review of above. 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, Musculoskeletal History: Reports: Other (See Below) Other Musculoskeletal History: left shoulder pain Psychiatric History: Reports: Anxiety Endocrine/Metabolic History: Reports: Obesity/BMI 30+ - Past Surgical History Head Surgeries/Procedures: Reports: None GI Surgical History: Reports: Appendectomy Female Surgical History: Reports: D&C, Hysterectomy, Salpingo-Oophorectomy, Other (See Below) Other Female Surgeries/Procedures: hysteroscopy with polypectomy and D&C, laparoscopy with peritoneal biospies and exc of left paratubal cyst Musculoskeletal Surgical History: Reports: Arthroscopic Procedure, Other (See Below) Other Musculoskeletal Surgeries/Procedures:: left shoulder arthroscopy Social & Family History - Family History Family Medical History: Noncontributory - Tobacco Use Smoking Status *Q: Never Smoker - Recreational Drug Use Recreational Drug Use: No ED ROS GENERAL - Review of Systems Review Of Systems: ROS reveals no pertinent complaints other than HPI. ED EXAM, GENERAL - Physical Exam Exam: See Below (See dictation) Course - Vital Signs Last Recorded V/S: Last Vital Signs Temp 36.1 C 03/07/19 21:11 Pulse 84 03/07/19 21:11 Resp 18 03/07/19 21:11 BP 138/85 03/07/19 21:11 Pulse Ox 97 03/07/19 21:11 Departure - Departure Time of Disposition: 21:43 Disposition: Home, Self-Care 01 Condition: Good Clinical Impression: Otitis media - Discharge Information Referrals: Payal Henry MD [Primary Care Provider] - Additional Instructions: The following information is given to patients seen in the emergency department who are being discharged to home. This information is to outline your options for follow-up care. We provide all patients seen in our emergency department with a follow-up referral. The need for follow-up, as well as the timing and circumstances, are variable depending upon the specifics of your emergency department visit. If you don't have a primary care physician on staff, we will provide you with a referral. We always advise you to contact your personal physician following an emergency department visit to inform them of the circumstance of the visit and for follow-up with them and/or the need for any referrals to a consulting specialist. The emergency department will also refer you to a specialist when appropriate. This referral assures that you have the opportunity for followup care with a specialist. All of these measure are taken in an effort to provide you with optimal care, which includes your followup. Under all circumstances we always encourage you to contact your private physician who remains a resource for coordinating your care. When calling for followup care, please make the office aware that this follow-up is from your recent emergency room visit. If for any reason you are refused follow-up, please contact the [facility] emergency department at and asked to speak to the emergency department charge nurse. Augmentin Ultram as prescribed follow-up primary medical doctor as needed as discussed and return as needed as discussed
== END 2019-03-07 21:53 | disposition home or self-care (01) ==
LOC: MW.ED 21:11
DX: H66.91 Otitis media, unspecified, right ear (principal); E66.9 Obesity, unspecified
CPT/HCPCS: 99282

== ENCOUNTER 2020-09-10 01:09 | Emergency (ER) | payer BC ==
[2020-09-10] MEDS ORDERED: Dexamethasone 10 MG/ML SDV IM ONE (01:19)
--- NOTE | 2020-09-10 01:22 | EDM.PDOC ---
ED HPI GENERAL MEDICAL PROBLEM - General Stated Complaint: ITCHY AND SWOLLEN HANDS Time Seen by Provider: 09/10/20 01:13 Source of Information: Reports: Patient History Limitations: Reports: No Limitations - History of Present Illness INITIAL COMMENTS - FREE TEXT/NARRATIVE: 34-year-old female presents with diffuse pruritus that started around midnight, associated with mild swelling to her hands. She denies throat closing sensation, hoarse voice, drooling, fever, chills, headache, chest pain, shortness of breath, abdominal pain, focal numbness or weakness. She took 50 mg of Benadryl at midnight. ROS: A 10-point review of systems, other than pertinent positives and negatives as stated per HPI, is otherwise negative Past medical history: No additional pertinent history Past Surgical history: No additional pertinent history Social history: No additional pertinent history Family history: No additional pertinent history PHYSICAL EXAM General: AOx4, GCS = 15, No distress, smiling in no distress, eating full sentences. HEENT: dry mucous membrane, Mallampati score = 1, no trismus, no stridor, no hoarseness Neck: supple, no meningismus, no Kernig or Brudzinski Cardiac: S1S2 RRR Skin: Trace upper extremity urticaria Respiratory: CTAB, no crackles or rales, no wheezing Abdomen: Soft, nontender, no rebound or guarding, nondistended, no pulsatile mass. Back: nontender Musculoskeletal: NVI distally, no deformity Neuro: No focal deficits, CN 2 - 12 WNL. 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, Musculoskeletal History: Reports: Other (See Below) Other Musculoskeletal History: left shoulder pain Psychiatric History: Reports: Anxiety Endocrine/Metabolic History: Reports: Obesity/BMI 30+ - Past Surgical History Head Surgeries/Procedures: Reports: None GI Surgical History: Reports: Appendectomy Female Surgical History: Reports: D&C, Hysterectomy, Salpingo-Oophorectomy, Other (See Below) Other Female Surgeries/Procedures: hysteroscopy with polypectomy and D&C, laparoscopy with peritoneal biospies and exc of left paratubal cyst Musculoskeletal Surgical History: Reports: Arthroscopic Procedure, Other (See Below) Other Musculoskeletal Surgeries/Procedures:: left shoulder arthroscopy Social & Family History - Family History Family Medical History: Noncontributory ED ROS ALLERGIC REACTION - Review of Systems Review Of Systems: See Below (see dictation) ED EXAM GENERAL NO PERIP PULSE - Physical Exam Exam: See Below (see dictation) Course - Re-Assessments/Exams Free Text/Narrative Re-Assessment/Exam: 09/10/20 01:45 After IM Decadron in the ER, the patient improved and is currently stable for discharge. I performed a repeat exam and did not appreciate new abnormal findings. Patient exhibits normal vital signs and has a normal gait on road test. I advised the patient to return to the ER for reevaluation if symptoms worsened, including fever, worsening pain, or any other worrisome symptoms. I instructed the patient to follow up with their PCP within 2-3 days. MEDICAL DECISION MAKING: I reviewed the patients past medical records, lab and radiographic findings. I discussed the case with the patient. My differential diagnosis included: Urticaria, allergic reaction. No airway compromise on my exam, her Mallampati score = 1, I do not suspect need for intubation or epinephrine. Departure - Departure Time of Disposition: 01:20 Disposition: Home, Self-Care 01 Condition: Good Clinical Impression: Allergic reaction - Discharge Information *PRESCRIPTION DRUG MONITORING PROGRAM REVIEWED*: Not Applicable *COPY OF PRESCRIPTION DRUG MONITORING REPORT IN PATIENT DOTTIE: Not Applicable Forms: ED Department Discharge Additional Instructions: The need for follow-up, as well as the timing and circumstances, are variable depending upon the specifics of your emergency department visit. If you don't have a primary care physician on staff, we will provide you with a referral. We always advise you to contact your personal physician following an emergency department visit to inform them of the circumstance of the visit and for follow-up with them and/or the need for any referrals to a consulting specialist. The emergency department will also refer you to a specialist when appropriate. This referral assures that you have the opportunity for follow-up care with a specialist. All of these measure are taken in an effort to provide you with optimal care, which includes your follow-up. Under all circumstances we always encourage you to contact your private physician who remains a resource for coordinating your care. When calling for follow-up care, please make the office aware that this follow-up is from your recent emergency room visit. If for any reason you are refused follow-up, please contact the [facility] Emergency Department at and asked to speak to the emergency department charge nurse. If you do not have a primary care doctor, please follow up with the clinics below within 3-5 days. [facility] - Primary Care [address] [place] [address] [place] [address] Critical Care Note - Critical Care Note Total Time (mins): 35 Comments: CRITCAL CARE: The high probability of sudden, clinically significant deterioration in the patient's condition required the highest level of my preparedness to intervene urgently. The services I provided to this patient were to treat and/or prevent clinically significant deterioration. Services included the following: chart data review, reviewing nursing notes and/or old charts, documentation time, staff consultant collaboration regarding findings and treatment options, medication orders and management, direct patient care, vital sign assessments and ordering, interpreting and reviewing diagnostic studies/lab tests. Aggregate critical care time includes only time during which I was engaged in work directly related to the patient's care, as described above, whether at the bedside or elsewhere in the Emergency Department. It did not include time spent performing other reported procedures or the services of residents, students, nurses or physician assistants. Frequent interventions and/or frequent repeat evaluations were required as well as counseling and coordination of care regarding prognosis, treatments, and discussions with patient, staff and consultants. Critical Care (excluding other procedures): 35 minutes
[2020-09-10 02:19] VITALS: BP 133/81; PULSE 73
== END 2020-09-10 02:14 | disposition home or self-care (01) ==
LOC: MW.ED 01:09
DX: L50.0 Allergic urticaria (principal); E66.9 Obesity, unspecified; Z90.49 Acquired absence of other specified parts of digestive tract; Z90.710 Acquired absence of both cervix and uterus; Z68.37 Body mass index [BMI] 37.0-37.9, adult
CPT/HCPCS: 96372; 99284; J1100

== ENCOUNTER 2022-04-19 17:33 | Emergency (ER) | payer BC ==
[2022-04-19 17:45] VITALS: BP 140/78; PULSE 71
== END 2022-04-19 17:58 | disposition home or self-care (01) ==
LOC: MW.ED 17:33
DX: H66.92 Otitis media, unspecified, left ear (principal); E66.9 Obesity, unspecified; Z68.35 Body mass index [BMI] 35.0-35.9, adult
CPT/HCPCS: 99282

== ENCOUNTER 2025-06-20 14:40 | Emergency (ER) | payer OTHER ==
[2025-06-20 15:00] VITALS: BP 137/92; PULSE 73
== END 2025-06-20 15:29 | disposition home or self-care (01) ==
LOC: MW.ED 14:40
DX: S61.512A Laceration without foreign body of left wrist, initial encounter (principal); Z90.49 Acquired absence of other specified parts of digestive tract; Z79.899 Other long term (current) drug therapy; Z75.3 Unavailability and inaccessibility of health-care facilities; W45.8XXA Other foreign body or object entering through skin, initial encounter
CPT/HCPCS: 12001; 99282; J2003; 99283